=== PATIENT | female | born 1980 | race Caucasian/White ===

== ENCOUNTER 2017-04-23 19:49 | Emergency (ER) | END 2017-04-23 21:15 | disposition left against medical advice (07) ==

== ENCOUNTER 2018-08-02 19:37 | Emergency (ER) | payer SELFPAY ==
[~2018-08-02] VITALS: Ht 167.6 cm; Wt 83.2 kg
[~2018-08-02 19:37] MED LIST: SULF15DR19 BOTH EYES
[2018-08-02 19:41] VITALS: BP 142/64; PULSE 83; RESP 19; Ht 167.6 cm; Wt 83.2 kg
== END 2018-08-02 22:06 | disposition left against medical advice (07) ==
LOC: E/R 19:37
DX: Z53.21 Procedure and treatment not carried out due to patient leaving prior to being seen by health care provider (principal)
CPT/HCPCS: 93005